=== PATIENT | female | born 1975 | race Caucasian/White ===

== ENCOUNTER 2020-03-15 11:02 | Observation (INO) | payer OTHER ==
--- NOTE | 2020-03-15 15:37 | Gastroenterology Consultation ---
History of Present Illness - Reason for Consult Consult date: 03/15/20 Malfunction PEG tube Requesting physician: CLARISA SPARKS - History of Present Illness The patient is a 44 yo female last seen in August (under name Ly Justyna, not Justyna Ly) for a dislodged PEG. She has a hx of pulling her PEG tube out, and the family brought her to the ER for the same. The last replacement was August (through the existing fistula). She has a hx of CVA with chronic trach and PEG. She is cared for at home by family. Per their report, the PEG was pulled out this AM, and by the time she was in the ER, the fistula was closed (I could also not thread a 16Fr PEG through the fistula). No significant bleeding noted, and there are no fevers or chills. Past History Past Medical History: stroke Past Surgical History: Other (Trach and PEG) Social history: no significant social history, lives with family Family history: no significant family history Medications and Allergies Active Meds: I HAVE REVIEWED AND RECONCILED MEDICATIONS Review of Systems - Review of Systems ROS unobtainable: due to mental status Exam - Constitutional Vital Signs: Temp Pulse Resp BP Pulse Ox 99 F 93 H 17 111/79 100 03/15/20 14:08 03/15/20 14:08 03/15/20 14:08 03/15/20 14:08 03/15/20 14:08 General appearance: no acute distress - EENT Eyes: PERRL, EOM intact ENT: hearing intact, no thrush, other (Trach) - Neck Neck: supple, normal ROM - Respiratory Respiratory effort: normal Respiratory: bilateral: CTA - Breasts Breasts: deferred - Cardiovascular Rhythm: regular Heart Sounds: Present: S1 & S2 - Gastrointestinal General gastrointestinal: Present: soft, non-tender, non-distended, other (Multiple (3) PEG scars in LUQ, with most recent fistula completely closed) - Integumentary Integumentary: Present: clear, warm, dry - Neurologic Neurological: other (Unable to assess; moves RUE and RLE; can grimace) Assessment and Plan - Patient Problems (1) Malfunction of gastrostomy tube Current Visit: Yes Status: Acute Plan to address problem: - Unable to replace at beside due to closure of the fistula, and inadequate supervision in the home (has been replaced at least 3 times previous). - Patient will need to be admitted for Dobhoff feeds, and PEG replaced on Friday (due to staffing issues in GI lab, will be closed until that time). - OK to continue anticoagulation with cardiac ASA (if on) or DVT PPY with heparin/lovenox at present.
[2020-03-15 15:38] LABS: Basophils % (Auto) 0.7 % (0.0-1.8); Eosinophils # (Auto) 0.1 K/mm3 (0.0-0.4); Eosinophils % (Auto) 1.7 % (0.0-4.3); Hematocrit 38.4 % (30.3-42.9); Hemoglobin 13.5 gm/dl (10.1-14.3); Lymphocytes # (Auto) 1.3 K/mm3 (1.2-5.4); Lymphocytes % (Auto) 21.1 % (13.4-35.0); Mean Corpuscular HGB Conc 35 % (30-34); Mean Corpuscular Volume 93 fl (79-97); Monocytes # (Auto) 0.5 K/mm3 (0.0-0.8); Monocytes % (Auto) 8.2 % (0.0-7.3); Platelet Count 214 K/mm3 (140-440); Red Blood Count 4.12 M/mm3 (3.65-5.03); Red Cell Distribution Width 12.8 % (13.2-15.2)
[2020-03-15 15:45] LABS: Alanine Aminotransferase 16 units/L (7-56); Albumin 3.6 g/dL (3.9-5); Blood Urea Nitrogen 11 mg/dL (7-17); Calcium 9.6 mg/dL (8.4-10.2); Hemolysis Index 35
[2020-03-15 15:46] LABS: BUN/Creatinine Ratio 22
--- NOTE | 2020-03-15 16:35 | Emergency Department Report ---
ED Abdominal Pain HPI - General Chief Complaint: Tube Replacement Stated Complaint: G TUBE DISPLACED Time Seen by Provider: 03/15/20 14:40 Source: family, EMS Mode of arrival: Stretcher Limitations: Language Barrier - History of Present Illness Initial Comments: 44-year-old female with a past medical history of CVA, hypertension, chronic trach, and PEG tube placement presents to the hospital for dislodged PEG tube. As per son via telephone states that tube was last and around 1 AM. Patient has a history of pulling out her tube. As per medical record review patient has been seen here previously with documented name PHOEBE, NORBERTO and required a placement PEG tube in August 2019. Patient is completely PEG dependent including feeds and meds Severity scale (0 -10): 0 ED Review of Systems ROS: Stated complaint: G TUBE DISPLACED Other details as noted in HPI Comment: All other systems reviewed and negative ED Past Medical Hx - Past Medical History Previous Medical History?: Yes Hx Hypertension: Yes Hx CVA: Yes Additional medical history: CVA 2018 - Surgical History Past Surgical History?: Yes Additional Surgical History: TRACH 12/2018 - Social History Smoking Status: Never Smoker Substance Use Type: None ED Physical Exam - General Limitations: Language Barrier - Other Other exam information: General: No acute distress Head: Atraumatic Eyes: normal appearance ENT: Moist mucous membranes Neck: Trach with supplemental oxygen Chest: Clear to auscultation bilaterally CV: Regular rate and rhythm Abdomen: Soft, recent PEG tube stoma is closed and I was unable to advance a lubricated Q-tip through this opening. Multiple previous PEG scars noted to the left upper quadrant, abdomen soft and nontender. Extremity: Normal inspection, full range of motion Neuro: Alert, nonverbal ED Course Vital Signs 03/15/20 03/15/20 03/15/20 14:00 14:08 14:15 Temperature 99 F Pulse Rate 76 92 H Respiratory 15 17 18 Rate Blood Pressure 111/79 109/80 O2 Sat by Pulse 100 100 100 Oximetry 03/15/20 03/15/20 03/15/20 14:30 14:45 15:01 Temperature Pulse Rate 85 80 73 Respiratory 20 13 12 Rate Blood Pressure 114/70 104/73 107/74 O2 Sat by Pulse 100 100 100 Oximetry 03/15/20 03/15/20 03/15/20 15:15 15:31 15:45 Temperature Pulse Rate 89 86 80 Respiratory 17 20 16 Rate Blood Pressure 107/74 107/74 107/74 O2 Sat by Pulse 100 100 100 Oximetry 03/15/20 16:00 Temperature Pulse Rate 75 Respiratory 18 Rate Blood Pressure 126/86 O2 Sat by Pulse Oximetry - Consultations Consultation #1: 03/15/[address] Jarrell GI doctor on-call shortly after initial patient evaluation. He also attempted to advance PEG tube (see note) however, confirms the stoma is closed. Unfortunately endoscopy is not available at this time and since patient is PEG tube dependent and recommends Dobbhoff tube for tube feedings until PEG tube can be replaced. ED Medical Decision Making - Lab Data Result diagrams: 03/15/20 15:09 03/15/20 15:09 Lab Results 03/15/20 03/15/20 Range/Units 15:09 15:09 WBC 5.9 (4.5-11.0) K/mm3 RBC 4.12 (3.65-5.03) M/mm3 Hgb 13.5 (10.1-14.3) gm/dl Hct 38.4 (30.3-42.9) % MCV 93 (79-97) fl MCH 33 H (28-32) pg MCHC 35 H (30-34) % RDW 12.8 L (13.2-15.2) % Plt Count 214 (140-440) K/mm3 Lymph % (Auto) 21.1 (13.4-35.0) % [place] % (Auto) 8.2 H (0.0-7.3) % Eos % (Auto) 1.7 (0.0-4.3) % Baso % (Auto) 0.7 (0.0-1.8) % Lymph # (Auto) 1.3 (1.2-5.4) K/mm3 [place] # (Auto) 0.5 (0.0-0.8) K/mm3 Eos # (Auto) 0.1 (0.0-0.4) K/mm3 Baso # (Auto) 0.0 (0.0-0.1) K/mm3 Seg Neutrophils % 68.3 (40.0-70.0) % Seg Neutrophils # 4.1 (1.8-7.7) K/mm3 Sodium 142 (137-145) mmol/L Potassium 4.3 (3.6-5.0) mmol/L Chloride 105.9 (98-107) mmol/L Carbon Dioxide 26 (22-30) mmol/L Anion Gap 14 mmol/L BUN 11 (7-17) mg/dL Creatinine 0.5 L (0.6-1.2) mg/dL Estimated GFR > 60 ml/min BUN/Creatinine Ratio 22 % Glucose 114 H (65-100) mg/dL Calcium 9.6 (8.4-10.2) mg/dL Total Bilirubin 0.20 (0.1-1.2) mg/dL AST 16 (5-40) units/L ALT 16 (7-56) units/L Alkaline Phosphatase 81 (35-129) units/L Total Protein 6.7 (6.3-8.2) g/dL Albumin 3.6 L (3.9-5) g/dL Albumin/Globulin Ratio 1.2 % - Medical Decision Making 44-year-old female PEG dependent presents to the hospital after PEG tube fell out. Patient has a history of pulling out her PEG tube in the past. Patient will require admission to the hospital for PEG tube replacement. Unfortunately, endoscopy is not available until Friday and patient will require Dobbhoff feeds until PEG can be replaced. Critical Care Time: No Critical care attestation.: If time is entered above; I have spent that time in minutes in the direct care of this critically ill patient, excluding procedure time. ED Disposition Clinical Impression: Dislodged gastrostomy tube, On tube feeding diet Disposition: OP ADMIT IP TO THIS HOSP Is pt being admited?: Yes Condition: Stable Time of Disposition: 16:51
--- NOTE | 2020-03-15 17:40 | History and Physical Report ---
History of Present Illness Chief complaint: She pulled the tube out History of present illness: 44 YO Female with Severe Malnutrition, Seizure Disorder, Hypothyroidism, HTN, CVA S/P Trach/Peg placement, Debility presents to ED for evaluation. Patient is at her baseline level of cognition and is unable to provide history. Patient history taken from EMS staff, ED staff, as well as patient family. As per patient family the patient was in her usual state of health with the PEG tube being in position at around 0100 hrs. Patient was found this morning upon awakening from sleep to have dislodged her feeding tube and is unable to receive her medication. EMS was notified and upon arrival the patient was found to have a dislodged feeding tube and was subsequently transported to [facility] for further evaluation and care. The patient was seen and evaluated in the emergency department. All lab and imaging studies reviewed. The patient was found to have severe malnutrition, metabolic encephalopathy, as well as a dislodged PEG tube. Patient admitted to medical floor due to increased risk of worsening symptoms. Gastroenterology team consulted in the emergency department. Patient is pending PEG tube replacement. No reports of fever, chills, chest pain, palpitations, trauma, recent ill contacts, or known exposure to COVID-19. Prior admission from August 2019 reviewed. All medication listed at time of admission has been reconciled. Past History Past Medical History: stroke, other (See HPI) Past Surgical History: Other (Trach and PEG) Social history: no significant social history, lives with family Family history: no significant family history Medications and Allergies Allergies Allergy/AdvReac Type Severity Reaction Status Date / Time Iodine and Iodide Containing Allergy Anaphylaxis Verified 03/15/20 16:46 Produc shellfish derived Allergy Anaphylaxis Verified 03/15/20 16:46 Home Medications Medication Instructions Recorded Confirmed Last Taken Type Aspirin 81 mg FEEDTUBE DAILY 03/15/20 03/15/20 1 Day Ago History ~03/14/20 81 Levothyroxine Sodium 100 mcg PO BID 03/15/20 03/14/20 08:00 History [Levothyroxine] 100 Pantoprazole [Protonix TAB] 10 PO TID 03/15/20 1 Day Ago History ~03/14/20 10 Pantoprazole [Protonix] 40 mg PO TID 03/15/20 03/15/20 1 Day Ago History ~03/14/20 levETIRAcetam [Keppra] 100 mg FEEDTUBE BID 03/15/20 03/15/20 1 Day Ago History ~03/14/20 100 Review of Systems ROS unobtainable: due to mental status Exam - Constitutional Vitals: Temp Pulse Resp BP Pulse Ox 99 F 75 18 126/86 100 03/15/20 14:08 03/15/20 16:00 03/15/20 16:00 03/15/20 16:00 03/15/20 15:45 General appearance: Present: mild distress - EENT Eyes: Present: PERRL ENT: clear oral mucosa, hearing decreased - Neck Neck: Present: supple, normal ROM - Respiratory Respiratory effort: normal Respiratory: bilateral: CTA - Cardiovascular Heart Sounds: Present: S1 & S2. Absent: rub, click - Extremities Extremities: pulses symmetrical, No edema Peripheral Pulses: within normal limits - Abdominal General gastrointestinal: Present: soft, non-tender, non-distended, normal bowel sounds Female genitourinary: Present: normal - Integumentary Integumentary: Present: clear, dry - Musculoskeletal Musculoskeletal: generalized weakness - Psychiatric Psychiatric: no appropriate mood/affect, no intact judgment & insight, no memory intact - Neurologic Neurologic: CNII-XII intact, focal deficits, no moves all extremities, no gait normal Results - Labs CBC & Chem 7: 03/15/20 15:09 03/15/20 15:09 Labs: Abnormal lab results 03/15/20 03/15/20 Range/Units 15:09 15:09 MCH 33 H (28-32) pg MCHC 35 H (30-34) % RDW 12.8 L (13.2-15.2) % [place] % (Auto) 8.2 H (0.0-7.3) % Creatinine 0.5 L (0.6-1.2) mg/dL Glucose 114 H (65-100) mg/dL Albumin 3.6 L (3.9-5) g/dL Assessment and Plan - Patient Problems (1) Metabolic encephalopathy Current Visit: Yes Status: Acute Plan to address problem: Supportive care, neuro check, seizure precautions, aspiration precautions, NPO. (2) Dislodged gastrostomy tube Current Visit: Yes Status: Acute Plan to address problem: GI team consulted in ED, patient pending surgical intervention, Dobbhoff tube placement. (3) Severe malnutrition Current Visit: Yes Status: Acute Plan to address problem: Dietary supplementation, increase protein intake. (4) Seizure disorder Current Visit: Yes Status: Acute Plan to address problem: Seizure precautions, continue Keppra via Dobbhoff tube, neuro check (5) Hypothyroidism Current Visit: Yes Status: Acute Plan to address problem: Continue Synthroid therapy via Dobbhoff tube, supportive care. (6) DVT prophylaxis Current Visit: Yes Status: Acute Plan to address problem: SCD to bilateral lower extremities while in bed, prophylactic anticoagulation
[2020-03-15] MEDS ORDERED: ACETAMINOPHEN 325 MG TAB PO PRN (17:42)
[2020-03-15] MEDS ORDERED: ONDANSETRON 4 MG/2 ML INJ IV PRN (17:42)
--- NOTE | 2020-03-15 18:32 | XRay Report ---
ABDOMEN SUPINE INDICATION / CLINICAL INFORMATION: ng. COMPARISON: None available. FINDINGS: Nasogastric tube is in the stomach, with the tip in the distal stomach. Signer Name: Miquel Esparza MD Signed: 03/15/2020 6:28 PM Workstation Name: [id number]
[2020-03-15] MEDS: D5W/0.45% NACL 1,000 ML IV SCH (21:00)
[2020-03-15] MEDS ORDERED: FAMOTIDINE 10 MG TAB PO SCH (22:00)
[2020-03-15] MEDS ORDERED: PANTOPRAZOLE 40 MG TAB PO SCH (22:00)
[2020-03-15] MEDS ORDERED: NON-FORMULARY EACH (Levothyroxine Sodium [Levothyroxine] 100 MCG Capsule) PO SCH (22:00)
[2020-03-15] MEDS: LEVOTHYROXINE 100 MCG TAB FEEDTUBE SCH (22:00)
[2020-03-15] MEDS ORDERED: levETIRAcetam 500 MG/5 ML ORAL LIQD FEEDTUBE SCH (22:00)
[2020-03-16] MEDS ORDERED: hydrALAZINE 20 MG/1 ML INJ IV PRN (00:41)
[2020-03-16] MEDS: levETIRAcetam 500 MG in DEXTROSE 5% IN WATER 100 ML IV SCH ×3 (01:15→21:34)
[2020-03-16 06:01] LABS: INR 0.96 (0.87-1.13)
[2020-03-16 06:02] LABS: Partial Thromboplastin Time 27.6 Sec. (24.2-36.6)
[2020-03-16 06:15] LABS: Blood Urea Nitrogen 12 mg/dL (7-17); Calcium 9.2 mg/dL (8.4-10.2); Hemolysis Index 36
[2020-03-16 06:21] LABS: BUN/Creatinine Ratio 24
[2020-03-16] MEDS ORDERED: DEXTROSE 5% IV SCH (08:00)
[2020-03-16] MEDS ORDERED: LEVETIRACETAM IV SCH (08:00)
[2020-03-16] MEDS ORDERED: WATER IV SCH (08:00)
[2020-03-16] MEDS: ASPIRIN 81 MG TAB CHEW FEEDTUBE SCH (08:49)
[2020-03-16] MEDS: D5W/0.45% NACL 1,000 ML IV SCH ×2 (09:04→13:10)
[2020-03-16] MEDS: PANTOPRAZOLE 40 MG INJ IV SCH ×2 (09:04→21:29)
[2020-03-16] MEDS: LEVOTHYROXINE 100 MCG TAB FEEDTUBE SCH ×2 (09:07→21:29)
--- NOTE | 2020-03-16 09:32 | Progress Note ---
Assessment and Plan Assessment and plan: 44 YO Female with Severe Malnutrition, Seizure Disorder, Hypothyroidism, HTN, CVA S/P Trach/Peg placement, Debility presents to ED for evaluation. Patient is at her baseline level of cognition and is unable to provide history. Patient history taken from EMS staff, ED staff, as well as patient family. As per patient family the patient was in her usual state of health with the PEG tube being in position at around 0100 hrs. Patient was found this morning upon awakening from sleep to have dislodged her feeding tube and is unable to receive her medication. EMS was notified and upon arrival the patient was found to have a dislodged feeding tube and was subsequently transported to [facility] for further e valuation and care. The patient was seen and evaluated in the emergency department. All lab and imaging studies reviewed. The patient was found to have severe malnutrition, metabolic encephalopathy, as well as a dislodged PEG tube. Patient admitted to medical floor due to increased risk of worsening symptoms. Gastroenterology team consulted in the emergency department. Patient is pending PEG tube replacement. No reports of fever, chills, chest pain, palpitations, trauma, recent ill contacts, or known exposure to COVID-19. Prior admission from August 2019 reviewed. All medication listed at time of admission has been reconciled. 03/16: Multiple attempts to place line rebuffed by the patient. Discussed with family patient takes Ativan at home orally. Will give one-time dose IV. Mon itor respiration. We will also while awaiting GI order for PICC line and possible TPN or PPN until patient is able to get replacement of the dislodged gastrostomy tube. Plan discussed with the nursing staff and patient (1) Metabolic encephalopathy Current Visit: Yes Status: Acute Plan to address problem: Supportive care, neuro check, seizure precautions, aspiration precautions, NPO. (2) Dislodged gastrostomy tube Current Visit: Yes Status: Acute Plan to address problem: GI team consulted in ED, patient pending surgical intervention, Dobbhoff tube placement. (3) Severe malnutrition Current Visit: Yes Status: Acute Plan to address problem: Dietary supplementation, increase protein intake. (4) Seizure disorder Current Visit: Yes Status: Acute Plan to address problem: Seizure precautions, continue Keppra via Dobbhoff tube, neuro check (5) Hypothyroidism Current Visit: Yes Status: Acute Plan to address problem: Continue Synthroid therapy via Dobbhoff tube, supportive care. (6) DVT prophylaxis Current Visit: Yes Status: Acute Plan to address problem: SCD to bilateral lower extremities while in bed, prophylactic anticoagulation History Interval history: Patient seen and examined tolerating oxygenation well along with her trach. She is very fidgety and anxious. She states affirmative to anxious questions. Hospitalist Physical - Physical exam Narrative exam: General appearance: Present: mild distress, anxious - EENT Eyes: Present: PERRL ENT: clear oral mucosa, hearing decreased - Neck Neck: Present: Tracheostomy is midline supple, normal ROM - Respiratory Respiratory effort: normal Respiratory: bilateral: CTA - Cardiovascular Heart Sounds: Present: S1 & S2. Absent: rub, click - Extremities Extremities: pulses symmetrical, No edema Peripheral Pulses: within normal limits - Abdominal General gastrointestinal: Present: soft, non-tender, non-distended, normal bowel sounds Female genitourinary: Present: normal - Integumentary Integumentary: Present: clear, dry - Musculoskeletal Musculoskeletal: generalized weakness - Psychiatric Psychiatric: Anxious. No appropriate mood/affect, no intact judgment & insight, no memory intact - Neurologic Neurologic: CNII-XII intact, focal deficits, no moves all extremities, no gait normal - Constitutional Vitals: Temp Pulse Resp BP Pulse Ox 98.2 F 75 18 129/86 96 03/16/20 07:17 03/16/20 07:17 03/16/20 07:17 03/16/20 07:17 03/16/20 07:17 General appearance: Present: mild distress Results - Labs CBC & Chem 7: 03/15/20 15:09 03/16/20 04:00 Labs: Laboratory Last Values WBC 5.9 K/mm3 (4.5-11.0) 03/15/20 15:09 RBC 4.12 M/mm3 (3.65-5.03) 03/15/20 15:09 Hgb 13.5 gm/dl (10.1-14.3) 03/15/20 15:09 Hct 38.4 % (30.3-42.9) 03/15/20 15:09 MCV 93 fl (79-97) 03/15/20 15:09 MCH 33 pg (28-32) H 03/15/20 15:09 MCHC 35 % (30-34) H 03/15/20 15:09 RDW 12.8 % (13.2-15.2) L 03/15/20 15:09 Plt Count 214 K/mm3 (140-440) 03/15/20 15:09 Lymph % (Auto) 21.1 % (13.4-35.0) 03/15/20 15:09 [place] % (Auto) 8.2 % (0.0-7.3) H 03/15/20 15:09 Eos % (Auto) 1.7 % (0.0-4.3) 03/15/20 15:09 Baso % (Auto) 0.7 % (0.0-1.8) 03/15/20 15:09 Lymph # (Auto) 1.3 K/mm3 (1.2-5.4) 03/15/20 15:09 [place] # (Auto) 0.5 K/mm3 (0.0-0.8) 03/15/20 15:09 Eos # (Auto) 0.1 K/mm3 (0.0-0.4) 03/15/20 15:09 Baso # (Auto) 0.0 K/mm3 (0.0-0.1) 03/15/20 15:09 Seg Neutrophils % 68.3 % (40.0-70.0) 03/15/20 15:09 Seg Neutrophils # 4.1 K/mm3 (1.8-7.7) 03/15/20 15:09 PT 12.6 Sec. (12.2-14.9) 03/16/20 05:26 INR 0.96 (0.87-1.13) 03/16/20 05:26 APTT 27.6 Sec. (24.2-36.6) 03/16/20 05:26 Sodium 142 mmol/L (137-145) 03/16/20 04:00 Potassium 3.6 mmol/L (3.6-5.0) 03/16/20 04:00 Chloride 105.2 mmol/L (98-107) 03/16/20 04:00 Carbon Dioxide 31 mmol/L (22-30) H 03/16/20 04:00 Anion Gap 9 mmol/L 03/16/20 04:00 BUN 12 mg/dL (7-17) 03/16/20 04:00 Creatinine 0.5 mg/dL (0.6-1.2) L 03/16/20 04:00 Estimated GFR > 60 ml/min 03/16/20 04:00 BUN/Creatinine Ratio 24 % 03/16/20 04:00 Glucose 124 mg/dL (65-100) H 03/16/20 04:00 Calcium 9.2 mg/dL (8.4-10.2) 03/16/20 04:00 Total Bilirubin 0.20 mg/dL (0.1-1.2) 03/15/20 15:09 AST 16 units/L (5-40) 03/15/20 15:09 ALT 16 units/L (7-56) 03/15/20 15:09 Alkaline Phosphatase 81 units/L (35-129) 03/15/20 15:09 Total Protein 6.7 g/dL (6.3-8.2) 03/15/20 15:09 Albumin 3.6 g/dL (3.9-5) L 03/15/20 15:09 Albumin/Globulin Ratio 1.2 % 03/15/20 15:09 [place]/IV: Voiding Method Indwelling Catheter IV Catheter Type [left forearm Peripheral IV ] Active Medications - Current Medications Current Medications: Generic Name Dose Route Start Last Admin Trade Name Freq PRN Reason Stop Dose Admin Acetaminophen 650 mg 03/15/20 17:42 Acetaminophen 325 Mg Tab PO Q4H PRN Pain MILD(1-3)/Fever >100.5/LYONS Aspirin 81 mg 03/16/20 08:00 Aspirin 81 Mg Tab Chew FEEDTUBE QDAY GILSON Hydralazine HCl 5 mg 03/16/20 00:41 Hydralazine 20 Mg/1 Ml Inj IV Q6H PRN Hypertension Dextrose/Sodium Chloride 1,000 mls @ 75 mls/hr 03/15/20 18:00 03/16/20 09:04 D5/0.45ns IV 75 mls/hr DIRECT GILSON Administration Levetiracetam 500 mg/ Dextrose 105 mls @ 420 mls/hr 03/16/20 01:15 03/16/20 01:15 IV 420 mls/hr BID@1000,2200 GILSON Administration Levothyroxine Sodium 100 mcg 03/15/20 22:00 03/15/20 22:00 Levothyroxine 100 Mcg Tab FEEDTUBE Not Given BID GILSON Ondansetron HCl 4 mg 03/15/20 17:42 Ondansetron 4 Mg/2 Ml Inj IV Q8H PRN Nausea And Vomiting Pantoprazole Sodium 40 mg 03/16/20 08:00 03/16/20 09:04 Pantoprazole 40 Mg Inj IV 40 mg BID GILSON Administration Sodium Chloride 10 ml 03/15/20 22:00 03/16/20 09:07 Sodium Chloride 0.9% 10 Ml Flush Syringe IV 10 ml BID GILSON Administration Sodium Chloride 10 ml 03/15/20 17:42 Sodium Chloride 0.9% 10 Ml Flush Syringe IV PRN PRN LINE FLUSH
[2020-03-16] MEDS ORDERED: NON-FORMULARY EACH (Aspirin 81 MG) FEEDTUBE SCH (10:00)
--- NOTE | 2020-03-16 10:20 | Gastroenterology Progress Note ---
Assessment and Plan Patient will need non emergent PEG tube placement; will perform on Friday In meantime she requires route of nutrition. Please pass NGT for tube feeds; if cannot perform then will need ppn - Patient Problems (1) Dislodged gastrostomy tube Current Visit: Yes Status: Acute Subjective Date of service: 03/16/20 Principal diagnosis: dysphagia, disloged PEG Interval history: patient without method for enteral feeding currently lying bed NAD Objective - Constitutional Vitals: Temp Pulse Resp BP Pulse Ox 98.2 F 75 18 129/86 95 03/16/20 07:17 03/16/20 07:17 03/16/20 07:17 03/16/20 07:17 03/16/20 10:01 General appearance: no acute distress - Labs CBC & Chem 7: 03/15/20 15:09 03/16/20 04:00 Labs: Laboratory Results - last 24 hr 03/15/20 03/15/20 03/16/20 15:09 15:09 04:00 WBC 5.9 RBC 4.12 Hgb 13.5 Hct 38.4 MCV 93 MCH 33 H MCHC 35 H RDW 12.8 L Plt Count 214 Lymph % (Auto) 21.1 [place] % (Auto) 8.2 H Eos % (Auto) 1.7 Baso % (Auto) 0.7 Lymph # (Auto) 1.3 [place] # (Auto) 0.5 Eos # (Auto) 0.1 Baso # (Auto) 0.0 Seg Neutrophils % 68.3 Seg Neutrophils # 4.1 PT INR APTT Sodium 142 142 Potassium 4.3 3.6 Chloride 105.9 105.2 Carbon Dioxide 26 31 H Anion Gap 14 9 BUN 11 12 Creatinine 0.5 L 0.5 L Estimated GFR > 60 > 60 BUN/Creatinine Ratio 22 24 Glucose 114 H 124 H Calcium 9.6 9.2 Total Bilirubin 0.20 AST 16 ALT 16 Alkaline Phosphatase 81 Total Protein 6.7 Albumin 3.6 L Albumin/Globulin Ratio 1.2 03/16/20 05:26 WBC RBC Hgb Hct MCV MCH MCHC RDW Plt Count Lymph % (Auto) [place] % (Auto) Eos % (Auto) Baso % (Auto) Lymph # (Auto) [place] # (Auto) Eos # (Auto) Baso # (Auto) Seg Neutrophils % Seg Neutrophils # PT 12.6 INR 0.96 APTT 27.6 Sodium Potassium Chloride Carbon Dioxide Anion Gap BUN Creatinine Estimated GFR BUN/Creatinine Ratio Glucose Calcium Total Bilirubin AST ALT Alkaline Phosphatase Total Protein Albumin Albumin/Globulin Ratio
[2020-03-16] MEDS ORDERED: LORazepam 2 MG/ML VIAL IV ONE (11:31)
--- NOTE | 2020-03-16 12:50 | XRay Report ---
ABDOMEN 1 VIEW 12:33 PM INDICATION / CLINICAL INFORMATION: Feeding tube placement. COMPARISON: Yesterday FINDINGS: TUBES / LINES: The nasogastric tube has been removed. There is a new weighted enteric feeding tube wi th the tip overlying the distal stomach or duodenal bulb. BOWEL GAS PATTERN: No significant abnormality. FREE AIR / EXTRALUMINAL GAS: None seen. ADDITIONAL FINDINGS: There is an IVC filter at the L2-3 level on the right. IMPRESSION: Feeding tube tip overlies the distal stomach or duodenal bulb. Signer Name: Derian Ricks MD Signed: 03/16/2020 12:46 PM Workstation Name: [id number]
[2020-03-17] MEDS: ASPIRIN 81 MG TAB CHEW FEEDTUBE SCH (10:27)
[2020-03-17] MEDS: PANTOPRAZOLE 40 MG INJ IV SCH ×2 (10:27→22:54)
[2020-03-17] MEDS: LEVOTHYROXINE 100 MCG TAB FEEDTUBE SCH ×2 (10:27→22:54)
[2020-03-17] MEDS: D5W/0.45% NACL 1,000 ML IV SCH (10:33)
[2020-03-17] MEDS: levETIRAcetam 500 MG in DEXTROSE 5% IN WATER 100 ML IV SCH ×2 (10:50→22:55)
--- NOTE | 2020-03-17 11:32 | Gastroenterology Progress Note ---
Assessment and Plan Patient will need non emergent PEG tube placement; will perform on Friday In meantime she now has NGT so may start tube feeds; I spoke with the nurse - Patient Problems (1) Dislodged gastrostomy tube Current Visit: Yes Status: Acute Subjective Date of service: 03/17/20 Principal diagnosis: dysphagia, disloged PEG Interval history: lying bed NAD, ngt in place Objective - Constitutional Vitals: Temp Pulse Resp BP Pulse Ox 97.7 F 97 H 16 154/101 98 03/17/20 07:08 03/17/20 07:08 03/17/20 07:08 03/17/20 07:08 03/17/20 07:08 General appearance: no acute distress - Respiratory Respiratory effort: normal - Labs CBC & Chem 7: 03/15/20 15:09 03/16/20 04:00 Labs: Laboratory Results - last 24 hr 03/16/20 03/16/20 03/17/20 13:14 13:51 02:31 POC Glucose 88 101 Phosphorus 2.90 Magnesium 1.90 03/17/20 03/17/20 06:36 11:27 POC Glucose 100 111 H Phosphorus Magnesium
[2020-03-17] MEDS ORDERED: LORazepam 1 MG TAB PO PRN (13:52)
--- NOTE | 2020-03-17 13:52 | Progress Note ---
Assessment and Plan Assessment and plan: 44 YO Female with Severe Malnutrition, Seizure Disorder, Hypothyroidism, HTN, CVA S/P Trach/Peg placement, Debility presents to ED for evaluation. Patient is at her baseline level of cognition and is unable to provide history. Patient history taken from EMS staff, ED staff, as well as patient family. As per patient family the patient was in her usual state of health with the PEG tube being in position at around 0100 hrs. Patient was found this morning upon awakening from sleep to have dislodged her feeding tube and is unable to receive her medication. EMS was notified and upon arrival the patient was found to have a dislodged feeding tube and was subsequently transported to [facility] for further e valuation and care. The patient was seen and evaluated in the emergency department. All lab and imaging studies reviewed. The patient was found to have severe malnutrition, metabolic encephalopathy, as well as a dislodged PEG tube. Patient admitted to medical floor due to increased risk of worsening symptoms. Gastroenterology team consulted in the emergency department. Patient is pending PEG tube replacement. No reports of fever, chills, chest pain, palpitations, trauma, recent ill contacts, or known exposure to COVID-19. Prior admission from August 2019 reviewed. All medication listed at time of admission has been reconciled. 03/16: Multiple attempts to place line rebuffed by the patient. Discussed with family patient takes Ativan at home orally. Will give one-time dose IV. Mon itor respiration. We will also while awaiting GI order for PICC line and possible TPN or PPN until patient is able to get replacement of the dislodged gastrostomy tube. Plan discussed with the nursing staff and patient 03/17: Continue current diet through the NG tube. Continue seizure precautions and continue seizure medication. (1) Metabolic encephalopathy Current Visit: Yes Status: Acute Plan to address problem: Supportive care, neuro check, seizure precautions, aspiration precautions, NPO. (2) Dislodged gastrostomy tube Current Visit: Yes Status: Acute Plan to address problem: GI team consulted in ED, patient pending surgical intervention, Dobbhoff tube placement. (3) Severe malnutrition Current Visit: Yes Status: Acute Plan to address problem: Dietary supplementation, increase protein intake. (4) Seizure disorder Current Visit: Yes Status: Acute Plan to address problem: Seizure precautions, continue Keppra via Dobbhoff tube, neuro check (5) Hypothyroidism Current Visit: Yes Status: Acute Plan to address problem: Continue Synthroid therapy via Dobbhoff tube, supportive care. (6) DVT prophylaxis Current Visit: Yes Status: Acute Plan to address problem: SCD to bilateral lower extremities while in bed, prophylactic anticoagulation History Interval history: Patient seen and examined still fidgety no new complaints at this time NG tube is in place patient is on restraints to prevent her from pulling off the tube. Hospitalist Physical - Physical exam Narrative exam: General appearance: Present: mild distress, anxious - EENT Eyes: Present: PERRL ENT: clear oral mucosa, hearing decreased. NG tube in place - Neck Neck: Present: Tracheostomy is midline supple, normal ROM - Respiratory Respiratory effort: normal Respiratory: bilateral: CTA - Cardiovascular Heart Sounds: Present: S1 & S2. Absent: rub, click - Extremities Extremities: pulses symmetrical, No edema Peripheral Pulses: within normal limits - Abdominal General gastrointestinal: Present: soft, non-tender, non-distended, normal bowel sounds Female genitourinary: Present: normal - Integumentary Integumentary: Present: clear, dry - Musculoskeletal Musculoskeletal: generalized weakness - Psychiatric Psychiatric: Anxious. No appropriate mood/affect, no intact judgment & insight, no memory intact - Neurologic Neurologic: CNII-XII intact, focal deficits, no moves all extremities, no gait normal - Constitutional Vitals: Temp Pulse Resp BP Pulse Ox 97.3 F L 75 20 135/93 98 03/17/20 11:20 03/17/20 11:20 03/17/20 11:20 03/17/20 11:20 03/17/20 13:32 General appearance: Present: mild distress Results - Labs CBC & Chem 7: 03/15/20 15:09 03/16/20 04:00 Labs: Laboratory Last Values WBC 5.9 K/mm3 (4.5-11.0) 03/15/20 15:09 RBC 4.12 M/mm3 (3.65-5.03) 03/15/20 15:09 Hgb 13.5 gm/dl (10.1-14.3) 03/15/20 15:09 Hct 38.4 % (30.3-42.9) 03/15/20 15:09 MCV 93 fl (79-97) 03/15/20 15:09 MCH 33 pg (28-32) H 03/15/20 15:09 MCHC 35 % (30-34) H 03/15/20 15:09 RDW 12.8 % (13.2-15.2) L 03/15/20 15:09 Plt Count 214 K/mm3 (140-440) 03/15/20 15:09 Lymph % (Auto) 21.1 % (13.4-35.0) 03/15/20 15:09 [place] % (Auto) 8.2 % (0.0-7.3) H 03/15/20 15:09 Eos % (Auto) 1.7 % (0.0-4.3) 03/15/20 15:09 Baso % (Auto) 0.7 % (0.0-1.8) 03/15/20 15:09 Lymph # (Auto) 1.3 K/mm3 (1.2-5.4) 03/15/20 15:09 [place] # (Auto) 0.5 K/mm3 (0.0-0.8) 03/15/20 15:09 Eos # (Auto) 0.1 K/mm3 (0.0-0.4) 03/15/20 15:09 Baso # (Auto) 0.0 K/mm3 (0.0-0.1) 03/15/20 15:09 Seg Neutrophils % 68.3 % (40.0-70.0) 03/15/20 15:09 Seg Neutrophils # 4.1 K/mm3 (1.8-7.7) 03/15/20 15:09 PT 12.6 Sec. (12.2-14.9) 03/16/20 05:26 INR 0.96 (0.87-1.13) 03/16/20 05:26 APTT 27.6 Sec. (24.2-36.6) 03/16/20 05:26 Sodium 142 mmol/L (137-145) 03/16/20 04:00 Potassium 3.6 mmol/L (3.6-5.0) 03/16/20 04:00 Chloride 105.2 mmol/L (98-107) 03/16/20 04:00 Carbon Dioxide 31 mmol/L (22-30) H 03/16/20 04:00 Anion Gap 9 mmol/L 03/16/20 04:00 BUN 12 mg/dL (7-17) 03/16/20 04:00 Creatinine 0.5 mg/dL (0.6-1.2) L 03/16/20 04:00 Estimated GFR > 60 ml/min 03/16/20 04:00 BUN/Creatinine Ratio 24 % 03/16/20 04:00 Glucose 124 mg/dL (65-100) H 03/16/20 04:00 POC Glucose 111 mg/dL (70-105) H 03/17/20 11:27 Calcium 9.2 mg/dL (8.4-10.2) 03/16/20 04:00 Phosphorus 2.90 mg/dL (2.5-4.5) 03/16/20 13:14 Magnesium 1.90 mg/dL (1.7-2.3) 03/16/20 13:14 Total Bilirubin 0.20 mg/dL (0.1-1.2) 03/15/20 15:09 AST 16 units/L (5-40) 03/15/20 15:09 ALT 16 units/L (7-56) 03/15/20 15:09 Alkaline Phosphatase 81 units/L (35-129) 03/15/20 15:09 Total Protein 6.7 g/dL (6.3-8.2) 03/15/20 15:09 Albumin 3.6 g/dL (3.9-5) L 03/15/20 15:09 Albumin/Globulin Ratio 1.2 % 03/15/20 15:09 Frederick/IV: Voiding Method Diaper IV Catheter Type [left forearm Peripheral IV ] Active Medications - Current Medications Current Medications: Generic Name Dose Route Start Last Admin Trade Name Freq PRN Reason Stop Dose Admin Acetaminophen 650 mg 03/15/20 17:42 Acetaminophen 325 Mg Tab PO Q4H PRN Pain MILD(1-3)/Fever >100.5/LYONS Aspirin 81 mg 03/16/20 08:00 03/17/20 10:27 Aspirin 81 Mg Tab Chew FEEDTUBE 81 mg QDAY GILSON Administration Hydralazine HCl 5 mg 03/16/20 00:41 Hydralazine 20 Mg/1 Ml Inj IV Q6H PRN Hypertension Dextrose/Sodium Chloride 1,000 mls @ 75 mls/hr 03/15/20 18:00 03/17/20 10:33 D5/0.45ns IV 75 mls/hr DIRECT GILSON Administration Levetiracetam 500 mg/ Dextrose 105 mls @ 420 mls/hr 03/16/20 01:15 03/17/20 10:50 IV 420 mls/hr BID@1000,2200 GILSON Administration Levothyroxine Sodium 100 mcg 03/15/20 22:00 03/17/20 10:27 Levothyroxine 100 Mcg Tab FEEDTUBE 100 mcg BID GILSON Administration Ondansetron HCl 4 mg 03/15/20 17:42 Ondansetron 4 Mg/2 Ml Inj IV Q8H PRN Nausea And Vomiting Pantoprazole Sodium 40 mg 03/16/20 08:00 03/17/20 10:27 Pantoprazole 40 Mg Inj IV 40 mg BID GILSON Administration Sodium Chloride 10 ml 03/15/20 22:00 03/17/20 10:51 Sodium Chloride 0.9% 10 Ml Flush Syringe IV Not Given BID GILSNO Sodium Chloride 10 ml 03/15/20 17:42 Sodium Chloride 0.9% 10 Ml Flush Syringe IV PRN PRN LINE FLUSH Nutrition/Malnutrition Assess - Dietary Evaluation Nutrition/Malnutrition Findings: Nutrition Notes Start: 03/16/20 13:01 Freq: Status: Active Protocol: Document 03/17/20 10:43 LM (Rec: 03/17/20 11:01 LM [id number]) Nutrition Notes Need for Assessment generated from: MD Order Initial or Follow up Assessment Current Diagnosis Hypertension Other Pertinent Diagnosis dislodged PEG, seizures, hypothyroid, debility Current Diet TPN Labs/Tests Reviewed Pertinent Medications D5NS at 75ml/hr Height 4 ft 10 in Weight 40.823 kg [place] Body Weight (kg) 40.90 BMI 18.8 Weight Status Underweight Subjective/Other Information MD consult for TPN/PPN. Pt is nonverbal and trach and PEG dependent. Pt has dislodged PEG and previously refused dobhoff placememt. Pt now has dobhoff placed and restrained. PICC placement on hold per RN . Pt is not indicated for PPN with dobhoff placed. Spoke with RN about plan to feed pt. RN stated she needs to find out from MD. Burn Absent Trauma Absent Current % PO Negligible #1 Nutrition Diagnosis Inadequate oral intake Etiology dislodged PEG As Evidenced by Signs and Symptoms Pt unable to consume PO, BMI 18.8 Is patient on ventilator? No Is Patient Ambulatory and/or Out of Bed No REE-([facility]-confined to bed) 1129.500 Kcal/Kg value to use for calculation 32 Approximate Energy Requirements Using 1306 kcal/Kg Calculation Used for Recommendations Kcal/kg Additional Notes Protein: 41-49g (1-1.2g/kg) Fluid: 1ml/kcal Nutrition Intervention Change Diet Order: Recommend enteral nutrition via dobhoff until PEG is replaced Nutrition Support: Jevity 1.2 at 45ml/hr Flush 70ml q4h Kcal 1,296 Protein (gm) 60 Fluid (mL) 872 Goal #1 Start eneteral nutrition via Dobhoff Goal #2 Wt gain/maintenance Anticipated Discharge Needs: TF Follow-Up By: 03/20/20 Additional Comments F/U for POC
[2020-03-17 14:41] LABS: Blood Urea Nitrogen 6 mg/dL (7-17); Calcium 9.4 mg/dL (8.4-10.2); Hemolysis Index 42; Prealbumin 0.186 g/L (0.200-0.400)
[2020-03-17 15:07] LABS: BUN/Creatinine Ratio 12
[2020-03-18] MEDS ORDERED: LIPASE 10,500/PROTEASE 25,000/AMYLASE 43,750 (UNITS) DR CAP FEEDTUBE PRN (08:09)
[2020-03-18] MEDS ORDERED: SIMPLE SYRUP 15 ML FEEDTUBE PRN ×2 (08:09)
[2020-03-18] MEDS ORDERED: SODIUM BICARBONATE 325 MG TAB FEEDTUBE PRN (08:09)
--- NOTE | 2020-03-18 09:21 | Progress Note ---
Assessment and Plan Assessment and plan: 44 YO Female with Severe Malnutrition, Seizure Disorder, Hypothyroidism, HTN, CVA S/P Trach/Peg placement, Debility presents to ED for evaluation. Patient is at her baseline level of cognition and is unable to provide history. Patient history taken from EMS staff, ED staff, as well as patient family. As per patient family the patient was in her usual state of health with the PEG tube being in position at around 0100 hrs. Patient was found this morning upon awakening from sleep to have dislodged her feeding tube and is unable to receive her medication. EMS was notified and upon arrival the patient was found to have a dislodged feeding tube and was subsequently transported to [facility] for further e valuation and care. The patient was seen and evaluated in the emergency department. All lab and imaging studies reviewed. The patient was found to have severe malnutrition, metabolic encephalopathy, as well as a dislodged PEG tube. Patient admitted to medical floor due to increased risk of worsening symptoms. Gastroenterology team consulted in the emergency department. Patient is pending PEG tube replacement. No reports of fever, chills, chest pain, palpitations, trauma, recent ill contacts, or known exposure to COVID-19. Prior admission from August 2019 reviewed. All medication listed at time of admission has been reconciled. 03/16: Multiple attempts to place line rebuffed by the patient. Discussed with family patient takes Ativan at home orally. Will give one-time dose IV. Mon itor respiration. We will also while awaiting GI order for PICC line and possible TPN or PPN until patient is able to get replacement of the dislodged gastrostomy tube. Plan discussed with the nursing staff and patient 03/17: Continue current diet through the NG tube. Continue seizure precautions and continue seizure medication. 03/18: Continue aggressive pulmonary toliet. Peg replacement planned for friday (1) Metabolic encephalopathy Current Visit: Yes Status: Acute Plan to address problem: Supportive care, neuro check, seizure precautions, aspiration precautions, NPO. (2) Dislodged gastrostomy tube Current Visit: Yes Status: Acute Plan to address problem: GI team consulted in ED, patient pending surgical intervention, Dobbhoff tube placement. (3) Severe malnutrition Current Visit: Yes Status: Acute Plan to address problem: Dietary supplementation, increase protein intake. (4) Seizure disorder Current Visit: Yes Status: Acute Plan to address problem: Seizure precautions, continue Keppra via Dobbhoff tube, neuro check (5) Hypothyroidism Current Visit: Yes Status: Acute Plan to address problem: Continue Synthroid therapy via Dobbhoff tube, supportive care. (6) DVT prophylaxis Current Visit: Yes Status: Acute Plan to address problem: SCD to bilateral lower extremities while in bed, prophylactic anticoagulation History Interval history: Patient seen and examined more calm today Hospitalist Physical - Physical exam Narrative exam: General appearance: Present: mild distress, - EENT Eyes: Present: PERRL ENT: clear oral mucosa, hearing decreased. NG tube in place - Neck Neck: Present: Tracheostomy is midline supple, normal ROM - Respiratory Respiratory effort: normal Respiratory: bilateral: CTA - Cardiovascular Heart Sounds: Present: S1 & S2. Absent: rub, click - Extremities Extremities: pulses symmetrical, No edema Peripheral Pulses: within normal limits - Abdominal General gastrointestinal: Present: soft, non-tender, non-distended, normal bowel sounds Female genitourinary: Present: normal - Integumentary Integumentary: Present: clear, dry - Musculoskeletal Musculoskeletal: generalized weakness - Psychiatric Psychiatric: Anxious. No appropriate mood/affect, no intact judgment & insight, no memory intact - Neurologic Neurologic: CNII-XII intact, focal deficits, no moves all extremities, no gait normal - Constitutional Vitals: Temp Pulse Resp BP Pulse Ox 97.4 F L 75 18 118/80 100 03/18/20 08:06 03/18/20 08:06 03/18/20 08:06 03/18/20 08:06 03/18/20 09:09 General appearance: Present: mild distress Results - Labs CBC & Chem 7: 03/15/20 15:09 03/17/20 13:43 Labs: Laboratory Last Values WBC 5.9 K/mm3 (4.5-11.0) 03/15/20 15:09 RBC 4.12 M/mm3 (3.65-5.03) 03/15/20 15:09 Hgb 13.5 gm/dl (10.1-14.3) 03/15/20 15:09 Hct 38.4 % (30.3-42.9) 03/15/20 15:09 MCV 93 fl (79-97) 03/15/20 15:09 MCH 33 pg (28-32) H 03/15/20 15:09 MCHC 35 % (30-34) H 03/15/20 15:09 RDW 12.8 % (13.2-15.2) L 03/15/20 15:09 Plt Count 214 K/mm3 (140-440) 03/15/20 15:09 Lymph % (Auto) 21.1 % (13.4-35.0) 03/15/20 15:09 [place] % (Auto) 8.2 % (0.0-7.3) H 03/15/20 15:09 Eos % (Auto) 1.7 % (0.0-4.3) 03/15/20 15:09 Baso % (Auto) 0.7 % (0.0-1.8) 03/15/20 15:09 Lymph # (Auto) 1.3 K/mm3 (1.2-5.4) 03/15/20 15:09 [place] # (Auto) 0.5 K/mm3 (0.0-0.8) 03/15/20 15:09 Eos # (Auto) 0.1 K/mm3 (0.0-0.4) 03/15/20 15:09 Baso # (Auto) 0.0 K/mm3 (0.0-0.1) 03/15/20 15:09 Seg Neutrophils % 68.3 % (40.0-70.0) 03/15/20 15:09 Seg Neutrophils # 4.1 K/mm3 (1.8-7.7) 03/15/20 15:09 PT 12.6 Sec. (12.2-14.9) 03/16/20 05:26 INR 0.96 (0.87-1.13) 03/16/20 05:26 APTT 27.6 Sec. (24.2-36.6) 03/16/20 05:26 Sodium 144 mmol/L (137-145) 03/17/20 13:43 Potassium 4.5 mmol/L (3.6-5.0) D 03/17/20 13:43 Chloride 107.7 mmol/L (98-107) H 03/17/20 13:43 Carbon Dioxide 28 mmol/L (22-30) 03/17/20 13:43 Anion Gap 13 mmol/L 03/17/20 13:43 BUN 6 mg/dL (7-17) L 03/17/20 13:43 Creatinine 0.5 mg/dL (0.6-1.2) L 03/17/20 13:43 Estimated GFR > 60 ml/min 03/17/20 13:43 BUN/Creatinine Ratio 12 % 03/17/20 13:43 Glucose 120 mg/dL (65-100) H 03/17/20 13:43 POC Glucose 92 mg/dL (70-105) 03/18/20 03:16 Calcium 9.4 mg/dL (8.4-10.2) 03/17/20 13:43 Phosphorus 3.50 mg/dL (2.5-4.5) D 03/17/20 13:43 Magnesium 1.90 mg/dL (1.7-2.3) 03/17/20 13:43 Total Bilirubin 0.20 mg/dL (0.1-1.2) 03/15/20 15:09 AST 16 units/L (5-40) 03/15/20 15:09 ALT 16 units/L (7-56) 03/15/20 15:09 Alkaline Phosphatase 81 units/L (35-129) 03/15/20 15:09 C-Reactive Protein 0.70 mg/dL (0.00-1.30) 03/17/20 13:43 Total Protein 6.7 g/dL (6.3-8.2) 03/15/20 15:09 Albumin 3.6 g/dL (3.9-5) L 03/15/20 15:09 Albumin/Globulin Ratio 1.2 % 03/15/20 15:09 Prealbumin 0.186 g/L (0.200-0.400) L 03/17/20 13:43 Triglycerides 110 mg/dL (2-149) 03/17/20 13:43 Frederick/IV: Voiding Method Diaper IV Catheter Type [left forearm Peripheral IV ] Active Medications - Current Medications Current Medications: Generic Name Dose Route Start Last Admin Trade Name Freq PRN Reason Stop Dose Admin Acetaminophen 650 mg 03/15/20 17:42 Acetaminophen 325 Mg Tab PO Q4H PRN Pain MILD(1-3)/Fever >100.5/LYONS Lipase/Protease/Amylase 1 each 03/18/20 08:09 Lipase 10,500/Protease 25,000/Amylase 43,750 (Units) Dr Butts FEEDTUBE PRN PRN For Clogged Feeding Tube Aspirin 81 mg 03/16/20 08:00 03/17/20 10:27 Aspirin 81 Mg Tab Chew FEEDTUBE 81 mg QDAY GILSON Administration Hydralazine HCl 5 mg 03/16/20 00:41 Hydralazine 20 Mg/1 Ml Inj IV Q6H PRN Hypertension Dextrose/Sodium Chloride 1,000 mls @ 75 mls/hr 03/15/20 18:00 03/17/20 10:33 D5/0.45ns IV 75 mls/hr DIRECT GILSON Administration Levetiracetam 500 mg/ Dextrose 105 mls @ 420 mls/hr 03/16/20 01:15 03/17/20 22:55 IV 420 mls/hr BID@1000,2200 GILSON Administration Levothyroxine Sodium 100 mcg 03/15/20 22:00 03/17/20 22:54 Levothyroxine 100 Mcg Tab FEEDTUBE 100 mcg BID GILSON Administration Lorazepam 1 mg 03/17/20 13:52 03/17/20 22:54 Lorazepam 1 Mg Tab PO 1 mg Q6HR PRN Administration Anxiety Ondansetron HCl 4 mg 03/15/20 17:42 Ondansetron 4 Mg/2 Ml Inj IV Q8H PRN Nausea And Vomiting Pantoprazole Sodium 40 mg 03/16/20 08:00 03/17/20 22:54 Pantoprazole 40 Mg Inj IV 40 mg BID GILSON Administration Simple Syrup 15 ml 03/18/20 08:09 Simple Syrup 15 Ml FEEDTUBE PRN PRN Hypoglycemia Simple Syrup 30 ml 03/18/20 08:09 Simple Syrup 15 Ml FEEDTUBE PRN PRN Hypoglycemia Sodium Bicarbonate 325 mg 03/18/20 08:09 Sodium Bicarbonate 325 Mg Tab FEEDTUBE PRN PRN For Clogged Feeding Tube Sodium Chloride 10 ml 03/15/20 22:00 03/17/20 22:55 Sodium Chloride 0.9% 10 Ml Flush Syringe IV 10 ml BID GILSON Administration Sodium Chloride 10 ml 03/15/20 17:42 Sodium Chloride 0.9% 10 Ml Flush Syringe IV PRN PRN LINE FLUSH Nutrition/Malnutrition Assess - Dietary Evaluation Nutrition/Malnutrition Findings: Nutrition Notes Start: 03/16/20 13:01 Freq: Status: Active Protocol: Document 03/18/20 08:11 GILBERT (Rec: 03/18/20 08:14 [id number]) Nutrition Notes Initial or Follow up Reassessment Current Diagnosis Hypertension Other Pertinent Diagnosis dislodged PEG, seizures, hypothyroid, debility Current Diet TPN Labs/Tests Reviewed Pertinent Medications Reviewed Height 4 ft 10 in Weight 40.823 kg [place] Body Weight (kg) 40.90 BMI 18.8 Weight Status Underweight Subjective/Other Information Spoke with RN this AM and wants TF started. Will order. Pt with dobhoff. Percent of energy/protein needs met: 0%/0% Burn Absent Trauma Absent GI Symptoms None Current % PO Negligible #1 Nutrition Diagnosis Inadequate oral intake Diagnosis Progress(for reassessment Continues documentation) Is patient on ventilator? No Is Patient Ambulatory and/or Out of Bed No REE-([facility]-confined to bed) 1129.500 Kcal/Kg value to use for calculation 32 Approximate Energy Requirements Using 1306 kcal/Kg Calculation Used for Recommendations Kcal/kg Additional Notes Protein: 41-49g (1-1.2g/kg) Fluid: 1ml/kcal Nutrition Intervention Change Diet Order: TF Nutrition Support: Jevity 1.2 at 45ml/hr Flush 70ml q4h Kcal 1,296 Protein (gm) 60 Fluid (mL) 872 Goal #1 TF start/tolerance Goal #2 Meet at least 75% of protein and energy needs via TF Goal #3 Wt gain/maintenance Anticipated Discharge Needs: TF Follow-Up By: 03/20/20 Additional Comments F/U for TF start/tolerance
[2020-03-18] MEDS: PANTOPRAZOLE 40 MG INJ IV SCH ×2 (13:44→22:00)
[2020-03-18] MEDS: LEVOTHYROXINE 100 MCG TAB FEEDTUBE SCH ×2 (13:44→22:00)
[2020-03-18] MEDS: ASPIRIN 81 MG TAB CHEW FEEDTUBE SCH (13:44)
[2020-03-18] MEDS: levETIRAcetam 500 MG in DEXTROSE 5% IN WATER 100 ML IV SCH ×2 (13:50→22:00)
[2020-03-18] MEDS: D5W/0.45% NACL 1,000 ML IV SCH (13:50)
--- NOTE | 2020-03-18 15:08 | Gastroenterology Progress Note ---
Assessment and Plan She has a hx of CVA with chronic trach and PEG. # Dislodged PEG tube - unable to replace PEG by bedside. - will plan for PEG with EGD on Friday Subjective Date of service: 03/18/20 Principal diagnosis: dysphagia, disloged PEG Interval history: Patient has dobhoff tube. No acute events. Objective - Constitutional Vitals: Temp Pulse Resp BP Pulse Ox 97.8 F 88 18 130/71 98 03/18/20 12:12 03/18/20 12:12 03/18/20 12:12 03/18/20 12:12 03/18/20 14:43 General appearance: no acute distress - Neck Neck: other (trach in place) - Respiratory Respiratory effort: normal - Cardiovascular Rhythm: regular Heart Sounds: Present: S1 & S2 - Gastrointestinal General gastrointestinal: Present: soft, non-tender, non-distended - Labs CBC & Chem 7: 03/15/20 15:09 03/17/20 13:43 Labs: Laboratory Results - last 24 hr 03/17/20 03/17/20 03/17/20 13:43 17:43 21:54 Potassium 4.5 D Creatinine 0.5 L Estimated GFR > 60 BUN/Creatinine Ratio 12 POC Glucose 110 H 96 Phosphorus 3.50 D 03/18/20 03/18/20 03:16 12:10 Potassium Creatinine Estimated GFR BUN/Creatinine Ratio POC Glucose 92 109 H Phosphorus
[2020-03-19] MEDS: D5W/0.45% NACL 1,000 ML IV SCH ×2 (04:10→08:29)
[2020-03-19] MEDS: PANTOPRAZOLE 40 MG INJ IV SCH ×2 (08:29→23:34)
[2020-03-19] MEDS: LEVOTHYROXINE 100 MCG TAB FEEDTUBE SCH ×2 (08:29→23:34)
[2020-03-19] MEDS: ASPIRIN 81 MG TAB CHEW FEEDTUBE SCH (08:29)
[2020-03-19] MEDS: levETIRAcetam 500 MG in DEXTROSE 5% IN WATER 100 ML IV SCH ×2 (11:00→23:35)
--- NOTE | 2020-03-19 11:48 | Gastroenterology Progress Note ---
Assessment and Plan Patient will need non emergent PEG tube placement; will perform on Friday In meantime she now has NGT so may continue tube feeds; I placed order to hold tube feeds starting at midnight in anticipation of the PEG tomorrow - Patient Problems (1) Dislodged gastrostomy tube Current Visit: Yes Status: Acute Subjective Date of service: 03/19/20 Principal diagnosis: dysphagia, disloged PEG Interval history: lying bed NAD, ngt in place Objective - Constitutional Vitals: Temp Pulse Resp BP Pulse Ox 97.4 F L 83 16 104/72 98 03/19/20 08:06 03/19/20 08:06 03/19/20 08:06 03/19/20 08:06 03/19/20 10:00 General appearance: no acute distress - Gastrointestinal General gastrointestinal: Present: soft, non-tender - Labs CBC & Chem 7: 03/15/20 15:09 03/17/20 13:43 Labs: Laboratory Results - last 24 hr 03/18/20 03/18/20 03/19/20 12:10 22:14 06:50 POC Glucose 109 H 99 83
--- NOTE | 2020-03-19 11:51 | Progress Note ---
Assessment and Plan Assessment and plan: Assessment and plan: 44 YO Female with Severe Malnutrition, Seizure Disorder, Hypothyroidism, HTN, CVA S/P Trach/Peg placement, Debility presents to ED for evaluation. Patient is at her baseline level of cognition and is unable to provide history. Patient history taken from EMS staff, ED staff, as well as patient family. As per patient family the patient was in her usual state of health with the PEG tube being in position at around 0100 hrs. Patient was found this morning upon awakening from sleep to have dislodged her feeding tube and is unable to receive her medication. EMS was notified and upon arrival the patient was found to have a dislodged feeding tube and was subsequently transported to [facility] for further evaluation and care. The patient was seen and evaluated in the emergency department. All lab and imaging studies reviewed. The patient was found to lyons ve severe malnutrition, metabolic encephalopathy, as well as a dislodged PEG tube. Patient admitted to medical floor due to increased risk of worsening symptoms. Gastroenterology team consulted in the emergency department. Patient is pending PEG tube replacement. No reports of fever, chills, chest pain, palpitations, trauma, recent ill contacts, or known exposure to COVID-19. Prior admission from August 2019 reviewed. All medication listed at time of admission has been reconciled. 03/16: Multiple attempts to place line rebuffed by the patient. Discussed with family patient takes Ativan at home orally. Will give one-time dose IV. Monitor respiration. We will also while awaiting GI order for PICC line and possible TPN or PPN until patient is able to get replacement of the dislodged gastrostomy tube. Plan discussed with the nursing staff and patient 03/17: Continue current diet through the NG tube. Continue seizure precautions and continue seizure medication. 03/18: Continue aggressive pulmonary toliet. Peg replacement planned for friday. 03/19. Plan for PEG placement tomorrow. N.p.o. after midnight Plan --Dislodged gastrostomy tube Current Visit: Yes Status: Acute Plan to address problem: GI team consulted in ED, patient pending surgical intervention, Dobbhoff tube placement. --Severe malnutrition Current Visit: Yes Status: Acute Plan to address problem: Dietary supplementation, increase protein intake. --Vascular dementia Current Visit: Yes Status: Chronic Plan to address problem: Has residual memory impairment. --Seizure disorder Current Visit: Yes Status: Acute Plan to address problem: Seizure precautions, continue Keppra via Dobbhoff tube, neuro check -- Hypothyroidism Current Visit: Yes Status: Acute Plan to address problem: Continue Synthroid therapy via Dobbhoff tube, supportive care. ---DVT prophylaxis Current Visit: Yes Status: Acute Plan to address problem: SCD to bilateral lower extremities while in bed, prophylactic anticoagulation History Interval history: Patient seen and examined at bedside Plan for PEG placement tomorrow Hospitalist Physical - Physical exam Narrative exam: VITAL SIGNS: Reviewed. GENERAL: Awake HEAD: No signs of head trauma. EYES: Pupils are equal. Extraocular motions intact. MOUTH: Oropharynx is normal. NECK: No adenopathy, no JVD. CHEST: Chest with diminished breath sounds bilaterally. No wheezes, rales, or rhonchi. CARDIAC: normal S1 and S2, without murmurs, gallops, or rubs. ABDOMEN: Soft, non tender and non distended. No rebound or guarding, and no masses palpated. Bowel Sounds normal. MUSCULOSKELETAL: No edema NEUROLOGIC EXAM: Awake SKIN: No obvious lesions - Constitutional Vitals: Temp Pulse Resp BP Pulse Ox 97.4 F L 83 16 104/72 98 03/19/20 08:06 03/19/20 08:06 03/19/20 08:06 03/19/20 08:06 03/19/20 10:00 Results - Labs CBC & Chem 7: 03/15/20 15:09 03/17/20 13:43 Labs: Laboratory Last Values WBC 5.9 K/mm3 (4.5-11.0) 03/15/20 15:09 RBC 4.12 M/mm3 (3.65-5.03) 03/15/20 15:09 Hgb 13.5 gm/dl (10.1-14.3) 03/15/20 15:09 Hct 38.4 % (30.3-42.9) 03/15/20 15:09 MCV 93 fl (79-97) 03/15/20 15:09 MCH 33 pg (28-32) H 03/15/20 15:09 MCHC 35 % (30-34) H 03/15/20 15:09 RDW 12.8 % (13.2-15.2) L 03/15/20 15:09 Plt Count 214 K/mm3 (140-440) 03/15/20 15:09 Lymph % (Auto) 21.1 % (13.4-35.0) 03/15/20 15:09 Curry % (Auto) 8.2 % (0.0-7.3) H 03/15/20 15:09 Eos % (Auto) 1.7 % (0.0-4.3) 03/15/20 15:09 Baso % (Auto) 0.7 % (0.0-1.8) 03/15/20 15:09 Lymph # (Auto) 1.3 K/mm3 (1.2-5.4) 03/15/20 15:09 Curry # (Auto) 0.5 K/mm3 (0.0-0.8) 03/15/20 15:09 Eos # (Auto) 0.1 K/mm3 (0.0-0.4) 03/15/20 15:09 Baso # (Auto) 0.0 K/mm3 (0.0-0.1) 03/15/20 15:09 Seg Neutrophils % 68.3 % (40.0-70.0) 03/15/20 15:09 Seg Neutrophils # 4.1 K/mm3 (1.8-7.7) 03/15/20 15:09 PT 12.6 Sec. (12.2-14.9) 03/16/20 05:26 INR 0.96 (0.87-1.13) 03/16/20 05:26 APTT 27.6 Sec. (24.2-36.6) 03/16/20 05:26 Sodium 144 mmol/L (137-145) 03/17/20 13:43 Potassium 4.5 mmol/L (3.6-5.0) D 03/17/20 13:43 Chloride 107.7 mmol/L (98-107) H 03/17/20 13:43 Carbon Dioxide 28 mmol/L (22-30) 03/17/20 13:43 Anion Gap 13 mmol/L 03/17/20 13:43 BUN 6 mg/dL (7-17) L 03/17/20 13:43 Creatinine 0.5 mg/dL (0.6-1.2) L 03/17/20 13:43 Estimated GFR > 60 ml/min 03/17/20 13:43 BUN/Creatinine Ratio 12 % 03/17/20 13:43 Glucose 120 mg/dL (65-100) H 03/17/20 13:43 POC Glucose 83 mg/dL (70-105) 03/19/20 06:50 Calcium 9.4 mg/dL (8.4-10.2) 03/17/20 13:43 Phosphorus 3.50 mg/dL (2.5-4.5) D 03/17/20 13:43 Magnesium 1.90 mg/dL (1.7-2.3) 03/17/20 13:43 Total Bilirubin 0.20 mg/dL (0.1-1.2) 03/15/20 15:09 AST 16 units/L (5-40) 03/15/20 15:09 ALT 16 units/L (7-56) 03/15/20 15:09 Alkaline Phosphatase 81 units/L (35-129) 03/15/20 15:09 C-Reactive Protein 0.70 mg/dL (0.00-1.30) 03/17/20 13:43 Total Protein 6.7 g/dL (6.3-8.2) 03/15/20 15:09 Albumin 3.6 g/dL (3.9-5) L 03/15/20 15:09 Albumin/Globulin Ratio 1.2 % 03/15/20 15:09 Prealbumin 0.186 g/L (0.200-0.400) L 03/17/20 13:43 Triglycerides 110 mg/dL (2-149) 03/17/20 13:43 Frederick/IV: Voiding Method External Female Catheter IV Catheter Type [left forearm Peripheral IV ] Active Medications - Current Medications Current Medications: Generic Name Dose Route Start Last Admin Trade Name Freq PRN Reason Stop Dose Admin Acetaminophen 650 mg 03/15/20 17:42 Acetaminophen 325 Mg Tab PO Q4H PRN Pain MILD(1-3)/Fever >100.5/LYONS Lipase/Protease/Amylase 1 each 03/18/20 08:09 Lipase 10,500/Protease 25,000/Amylase 43,750 (Units) Dr Butts FEEDTUBE PRN PRN For Clogged Feeding Tube Aspirin 81 mg 03/16/20 08:00 03/19/20 08:29 Aspirin 81 Mg Tab Chew FEEDTUBE 81 mg QDAY GILSON Administration Hydralazine HCl 5 mg 03/16/20 00:41 Hydralazine 20 Mg/1 Ml Inj IV Q6H PRN Hypertension Dextrose/Sodium Chloride 1,000 mls @ 75 mls/hr 03/15/20 18:00 03/19/20 08:29 D5/0.45ns IV 75 mls/hr DIRECT GILSON Administration Levetiracetam 500 mg/ Dextrose 105 mls @ 420 mls/hr 03/16/20 01:15 03/18/20 22:00 IV 420 mls/hr BID@1000,2200 GILSON Administration Levothyroxine Sodium 100 mcg 03/15/20 22:00 03/19/20 08:29 Levothyroxine 100 Mcg Tab FEEDTUBE 100 mcg BID GILSON Administration Lorazepam 1 mg 03/17/20 13:52 03/17/20 22:54 Lorazepam 1 Mg Tab PO 1 mg Q6HR PRN Administration Anxiety Ondansetron HCl 4 mg 03/15/20 17:42 Ondansetron 4 Mg/2 Ml Inj IV Q8H PRN Nausea And Vomiting Pantoprazole Sodium 40 mg 03/16/20 08:00 03/19/20 08:29 Pantoprazole 40 Mg Inj IV 40 mg BID GILSON Administration Simple Syrup 15 ml 03/18/20 08:09 Simple Syrup 15 Ml FEEDTUBE PRN PRN Hypoglycemia Simple Syrup 30 ml 03/18/20 08:09 Simple Syrup 15 Ml FEEDTUBE PRN PRN Hypoglycemia Sodium Bicarbonate 325 mg 03/18/20 08:09 Sodium Bicarbonate 325 Mg Tab FEEDTUBE PRN PRN For Clogged Feeding Tube Sodium Chloride 10 ml 03/15/20 22:00 03/19/20 08:29 Sodium Chloride 0.9% 10 Ml Flush Syringe IV 10 ml BID GILSON Administration Sodium Chloride 10 ml 03/15/20 17:42 Sodium Chloride 0.9% 10 Ml Flush Syringe IV PRN PRN LINE FLUSH Nutrition/Malnutrition Assess - Dietary Evaluation Nutrition/Malnutrition Findings: Nutrition Notes Start: 03/16/20 13:01 Freq: Status: Active Protocol: Document 03/18/20 08:11 GILBERT (Rec: 03/18/20 08:14 GILBERT [id number]) Nutrition Notes Initial or Follow up Reassessment Current Diagnosis Hypertension Other Pertinent Diagnosis dislodged PEG, seizures, hypothyroid, debility Current Diet TPN Labs/Tests Reviewed Pertinent Medications Reviewed Height 4 ft 10 in Weight 40.823 kg [place] Body Weight (kg) 40.90 BMI 18.8 Weight Status Underweight Subjective/Other Information Spoke with RN this AM and MD wants TF started. Will order. Pt with dobhoff. Percent of energy/protein needs met: 0%/0% Burn Absent Trauma Absent GI Symptoms None Current % PO Negligible #1 Nutrition Diagnosis Inadequate oral intake Diagnosis Progress(for reassessment Continues documentation) Is patient on ventilator? No Is Patient Ambulatory and/or Out of Bed No REE-([place]-confined to bed) 1129.500 Kcal/Kg value to use for calculation 32 Approximate Energy Requirements Using 1306 kcal/Kg Calculation Used for Recommendations Kcal/kg Additional Notes Protein: 41-49g (1-1.2g/kg) Fluid: 1ml/kcal Nutrition Intervention Change Diet Order: TF Nutrition Support: Jevity 1.2 at 45ml/hr Flush 70ml q4h Kcal 1,296 Protein (gm) 60 Fluid (mL) 872 Goal #1 TF start/tolerance Goal #2 Meet at least 75% of protein and energy needs via TF Goal #3 Wt gain/maintenance Anticipated Discharge Needs: TF Follow-Up By: 03/20/20 Additional Comments F/U for TF start/tolerance
[2020-03-20] MEDS: D5W/0.45% NACL 1,000 ML IV SCH (00:53)
[2020-03-20] MEDS ORDERED: SODIUM CHLORIDE 0.9% 1000 ML 1,000 ML IV SCH (08:15)
[2020-03-20] MEDS: levETIRAcetam 500 MG in DEXTROSE 5% IN WATER 100 ML IV SCH ×2 (08:30→22:22)
[2020-03-20] MEDS: ASPIRIN 81 MG TAB CHEW FEEDTUBE SCH (08:36)
[2020-03-20] MEDS: PANTOPRAZOLE 40 MG INJ IV SCH ×2 (08:37→22:22)
[2020-03-20] MEDS ORDERED: ceFAZolin/Water 2 GM/20 ML 2 GM/20 ML SYRINGE IV NR (09:00)
[2020-03-20] MEDS ORDERED: propofoL 200 MG/20 ML VIAL IV ONE ×2 (09:19→09:40)
--- NOTE | 2020-03-20 09:25 | Anesthesia Day of Surgery ---
Anesthesia Day of Surgery - Day of Surgery Patient Examined: Yes Patient H&P Reviewed: Yes Patient is NPO: Yes
--- NOTE | 2020-03-20 09:29 | Anesthesia Consultation ---
Anesthesia Consult and Med Hx Date of service: 03/20/20 - Airway Intubation Access Assessment: Good (TRACH; Unable to assess airway) - Pre-Operative Health Status ASA Pre-Surgery Classification: ASA3 Proposed Anesthetic Plan: MAC - Cardiovascular System Hx Hypertension: Yes - Central Nervous System Hx Neuromuscular Disorder: Yes (Metabolic encephalopathy) Hx Seizures: Yes CVA: Yes (2014, 2018) - Gastrointestinal Hx Gastroesophageal Reflux Disease: No (Dislodged PEG. Severe malnutrition) - Endocrine Hx Thyroid Disease: Yes Hx Hypothyroidism: Yes
[2020-03-20] MEDS ORDERED: WATER FOR IRRIG STERILE 1,000 ML BOTTLE ONE (09:32)
[2020-03-20] MEDS ORDERED: WATER FOR IRRIG STERILE 250 ML BOTTLE IR ONE (09:32)
[2020-03-20] MEDS ORDERED: fentaNYL 100 MCG/2 ML INJ ONE (09:33)
--- NOTE | 2020-03-20 10:01 | Operative Report ---
Operative Report Operative Report: Date of procedure: 03/20/2020 Pre procedure diagnosis: Inability to swallow due to CVA Post procedure diagnosis: same Procedure: Esophagogastroduodenoscopy with percutaneous endoscopic gastrostomy Endoscopist: Slim Og MD (Jenny) Medications: Per anesthesia- see separate records for details./ Ancef 2 gm IV Complications: none Estimated blood loss: None After careful discussion of the nature and purpose of the procedure, details of the technique, risks, benefits and alternatives consent was obtained from patient's family. The patient was placed in the supine position and medicated by anesthesia- see separate records for details. The tip of the olympus video upper scope was passed per orum under direct view through the mouth and into the esophagus, stomach and duodenum. The scope was advanced to the second portion of the duodenum without difficulty. The third portion and second portion of the duodenum were normal. The bulb revealed normal mucosa. The scope was withdrawn back into the stomach and the stomach gently insufflated with air. The antrum revealed normal mucosa. The scope was then retroflexed and partially withdrawn to inspect the proximal stomach. The cardia, fundus and body were normal. Previous PEG tube site noted in the gastric body. The stomach was insufflated and a suitable gastrostomy site selected by transillumination and percutaneous compression demonstrating good opposition of the stomach and abdominal wall. The abdomen was prepped and draped in sterile fashion and 1% lidocaine instilled at the optimal site. A small incision was made and the tissue spread with sterile hemostats. The needle and catheter were inserted percutaneously into the stomach without difficulty under direct view. The needle was withdrawn followed by insertion of the guidewire through the catheter. The guidewire was grasped by the snare and positioned by withdrawal of the scope. A IP [employer] 20 gauge gastrostomy tube was pulled into place from the abdominal side of the wire to a snug fit at around 3 cm at the skin. The external bumper was applied and the site again dressed in sterile fashion. The scope was then withdrawn in the forward view. The EG junction was at 40 cm. The esophagus revealed normal mucosa throughout. . The procedure was well tolerated and the patient was observed in the GI recovery unit. IMPRESSION: S/p Percutaneous Endoscopic gastrostomy. Plan: - resume tube feeds in 6 hours - keep head of bed elevated, aspiration precautions. Slim Og (Jenny), MD [facility]
[2020-03-20] MEDS: LEVOTHYROXINE 100 MCG TAB FEEDTUBE SCH ×2 (10:35→22:22)
--- NOTE | 2020-03-20 16:22 | Progress Note ---
Assessment and Plan Assessment and plan: Assessment and plan: 44 YO Female with Severe Malnutrition, Seizure Disorder, Hypothyroidism, HTN, CVA S/P Trach/Peg placement, Debility presents to ED for evaluation. Patient is at her baseline level of cognition and is unable to provide history. Patient history taken from EMS staff, ED staff, as well as patient family. As per patient family the patient was in her usual state of health with the PEG tube being in position at around 0100 hrs. Patient was found this morning upon awakening from sleep to have dislodged her feeding tube and is unable to receive her medication. EMS was notified and upon arrival the patient was found to have a dislodged feeding tube and was subsequently transported to [facility] for further evaluation and care. The patient was seen and evaluated in the emergency department. All lab and imaging studies reviewed. The patient was found to lyons ve severe malnutrition, metabolic encephalopathy, as well as a dislodged PEG tube. Patient admitted to medical floor due to increased risk of worsening symptoms. Gastroenterology team consulted in the emergency department. Patient is pending PEG tube replacement. No reports of fever, chills, chest pain, palpitations, trauma, recent ill contacts, or known exposure to COVID-19. Prior admission from August 2019 reviewed. All medication listed at time of admission has been reconciled. 03/16: Multiple attempts to place line rebuffed by the patient. Discussed with family patient takes Ativan at home orally. Will give one-time dose IV. Monitor respiration. We will also while awaiting GI order for PICC line and possible TPN or PPN until patient is able to get replacement of the dislodged gastrostomy tube. Plan discussed with the nursing staff and patient 03/17: Continue current diet through the NG tube. Continue seizure precautions and continue seizure medication. 03/18: Continue aggressive pulmonary toliet. Peg replacement planned for friday. 03/19. Plan for PEG placement tomorrow. N.p.o. after midnight 03/20. PEG placed. Ok to resume feeds. Plan for DC tomorrow. Plan --Dislodged gastrostomy tube Current Visit: Yes Status: Acute Plan to address problem: PEG placed. Tube to be resumed. --Severe malnutrition Current Visit: Yes Status: Acute Plan to address problem: Dietary supplementation, increase protein intake. --Vascular dementia Current Visit: Yes Status: Chronic Plan to address problem: Has residual memory impairment. --Seizure disorder Current Visit: Yes Status: Acute Plan to address problem: Seizure precautions, continue Keppra via Dobbhoff tube, neuro check -- Hypothyroidism Current Visit: Yes Status: Acute Plan to address problem: Continue Synthroid therapy via Dobbhoff tube, supportive care. ---DVT prophylaxis Current Visit: Yes Status: Acute Plan to address problem: SCD to bilateral lower extremities while in bed, prophylactic anticoagulation History Interval history: Patient seen and examined at bedside PEG placed today. Can resume feeds Hospitalist Physical - Physical exam Narrative exam: VITAL SIGNS: Reviewed. GENERAL: Awake HEAD: No signs of head trauma. EYES: Pupils are equal. Extraocular motions intact. MOUTH: Oropharynx is normal. NECK: No adenopathy, no JVD. CHEST: Chest with diminished breath sounds bilaterally. No wheezes, rales, or rhonchi. CARDIAC: normal S1 and S2, without murmurs, gallops, or rubs. ABDOMEN: Soft, non tender and non distended. No rebound or guarding, and no masses palpated. Bowel Sounds normal. MUSCULOSKELETAL: No edema NEUROLOGIC EXAM: Awake SKIN: No obvious lesions - Constitutional Vitals: Temp Pulse Resp BP Pulse Ox 98.5 F 76 24 141/96 100 03/20/20 15:12 03/20/20 15:12 03/20/20 15:12 03/20/20 15:12 03/20/20 15:12 Results - Labs CBC & Chem 7: 03/15/20 15:09 03/17/20 13:43 Labs: Laboratory Last Values WBC 5.9 K/mm3 (4.5-11.0) 03/15/20 15:09 RBC 4.12 M/mm3 (3.65-5.03) 03/15/20 15:09 Hgb 13.5 gm/dl (10.1-14.3) 03/15/20 15:09 Hct 38.4 % (30.3-42.9) 03/15/20 15:09 MCV 93 fl (79-97) 03/15/20 15:09 MCH 33 pg (28-32) H 03/15/20 15:09 MCHC 35 % (30-34) H 03/15/20 15:09 RDW 12.8 % (13.2-15.2) L 03/15/20 15:09 Plt Count 214 K/mm3 (140-440) 03/15/20 15:09 Lymph % (Auto) 21.1 % (13.4-35.0) 03/15/20 15:09 [place] % (Auto) 8.2 % (0.0-7.3) H 03/15/20 15:09 Eos % (Auto) 1.7 % (0.0-4.3) 03/15/20 15:09 Baso % (Auto) 0.7 % (0.0-1.8) 03/15/20 15:09 Lymph # (Auto) 1.3 K/mm3 (1.2-5.4) 03/15/20 15:09 [place] # (Auto) 0.5 K/mm3 (0.0-0.8) 03/15/20 15:09 Eos # (Auto) 0.1 K/mm3 (0.0-0.4) 03/15/20 15:09 Baso # (Auto) 0.0 K/mm3 (0.0-0.1) 03/15/20 15:09 Seg Neutrophils % 68.3 % (40.0-70.0) 03/15/20 15:09 Seg Neutrophils # 4.1 K/mm3 (1.8-7.7) 03/15/20 15:09 PT 12.6 Sec. (12.2-14.9) 03/16/20 05:26 INR 0.96 (0.87-1.13) 03/16/20 05:26 APTT 27.6 Sec. (24.2-36.6) 03/16/20 05:26 Sodium 144 mmol/L (137-145) 03/17/20 13:43 Potassium 4.5 mmol/L (3.6-5.0) D 03/17/20 13:43 Chloride 107.7 mmol/L (98-107) H 03/17/20 13:43 Carbon Dioxide 28 mmol/L (22-30) 03/17/20 13:43 Anion Gap 13 mmol/L 03/17/20 13:43 BUN 6 mg/dL (7-17) L 03/17/20 13:43 Creatinine 0.5 mg/dL (0.6-1.2) L 03/17/20 13:43 Estimated GFR > 60 ml/min 03/17/20 13:43 BUN/Creatinine Ratio 12 % 03/17/20 13:43 Glucose 120 mg/dL (65-100) H 03/17/20 13:43 POC Glucose 87 mg/dL (70-105) 03/20/20 11:19 Calcium 9.4 mg/dL (8.4-10.2) 03/17/20 13:43 Phosphorus 3.50 mg/dL (2.5-4.5) D 03/17/20 13:43 Magnesium 1.90 mg/dL (1.7-2.3) 03/17/20 13:43 Total Bilirubin 0.20 mg/dL (0.1-1.2) 03/15/20 15:09 AST 16 units/L (5-40) 03/15/20 15:09 ALT 16 units/L (7-56) 03/15/20 15:09 Alkaline Phosphatase 81 units/L (35-129) 03/15/20 15:09 C-Reactive Protein 0.70 mg/dL (0.00-1.30) 03/17/20 13:43 Total Protein 6.7 g/dL (6.3-8.2) 03/15/20 15:09 Albumin 3.6 g/dL (3.9-5) L 03/15/20 15:09 Albumin/Globulin Ratio 1.2 % 03/15/20 15:09 Prealbumin 0.186 g/L (0.200-0.400) L 03/17/20 13:43 Triglycerides 110 mg/dL (2-149) 03/17/20 13:43 Frederick/IV: Voiding Method Diaper IV Catheter Type [left forearm Peripheral IV ] Active Medications - Current Medications Current Medications: Generic Name Dose Route Start Last Admin Trade Name Freq PRN Reason Stop Dose Admin Acetaminophen 650 mg 03/15/20 17:42 Acetaminophen 325 Mg Tab PO Q4H PRN Pain MILD(1-3)/Fever >100.5/LYONS Lipase/Protease/Amylase 1 each 03/18/20 08:09 Lipase 10,500/Protease 25,000/Amylase 43,750 (Units) Dr Butts FEEDTUBE PRN PRN For Clogged Feeding Tube Aspirin 81 mg 03/16/20 08:00 03/20/20 08:36 Aspirin 81 Mg Tab Chew FEEDTUBE Not Given QDAY GILSON Hydralazine HCl 5 mg 03/16/20 00:41 Hydralazine 20 Mg/1 Ml Inj IV Q6H PRN Hypertension Levetiracetam 500 mg/ Dextrose 105 mls @ 420 mls/hr 03/16/20 01:15 03/20/20 08:30 IV 420 mls/hr BID@1000,2200 GILSON Administration Sodium Chloride 1,000 mls @ 50 mls/hr 03/20/20 08:15 03/20/20 08:55 Nacl 0.9% 1000 Ml IV 50 mls/hr DIRECT GILSON Administration Cefazolin Sodium 2 gm in 20 mls @ 80 mls/hr 03/20/20 09:00 Ancef/Sterile Water 2 Gm/20 Ml IV 03/20/20 20:00 PREOP NR Protocol Levothyroxine Sodium 100 mcg 03/15/20 22:00 03/20/20 10:35 Levothyroxine 100 Mcg Tab FEEDTUBE 100 mcg BID GILSON Administration Lorazepam 1 mg 03/17/20 13:52 03/17/20 22:54 Lorazepam 1 Mg Tab PO 1 mg Q6HR PRN Administration Anxiety Ondansetron HCl 4 mg 03/15/20 17:42 Ondansetron 4 Mg/2 Ml Inj IV Q8H PRN Nausea And Vomiting Pantoprazole Sodium 40 mg 03/16/20 08:00 03/20/20 08:37 Pantoprazole 40 Mg Inj IV 40 mg BID GILSON Administration Simple Syrup 15 ml 03/18/20 08:09 Simple Syrup 15 Ml FEEDTUBE PRN PRN Hypoglycemia Simple Syrup 30 ml 03/18/20 08:09 Simple Syrup 15 Ml FEEDTUBE PRN PRN Hypoglycemia Sodium Bicarbonate 325 mg 03/18/20 08:09 Sodium Bicarbonate 325 Mg Tab FEEDTUBE PRN PRN For Clogged Feeding Tube Sodium Chloride 10 ml 03/15/20 22:00 03/20/20 08:42 Sodium Chloride 0.9% 10 Ml Flush Syringe IV Not Given BID GILSON Sodium Chloride 10 ml 03/15/20 17:42 Sodium Chloride 0.9% 10 Ml Flush Syringe IV PRN PRN LINE FLUSH Nutrition/Malnutrition Assess - Dietary Evaluation Nutrition/Malnutrition Findings: Nutrition Notes Start: 03/16/20 13:01 Freq: Status: Active Protocol: Document 03/20/20 10:14 LM (Rec: 03/20/20 10:14 LM [id number]) Nutrition Notes Initial or Follow up Brief Note Subjective/Other Information Pt NPO for PEG placement. Pt was not in room. Nutrition Intervention Follow-Up By: 03/21/20 Additional Comments F/U for PEG, TF restart
--- NOTE | 2020-03-20 17:25 | Post Anesthesia Evaluation ---
- Post Anesthesia Evaluation Patient Participated: Yes Airway Patent: Yes Stable Respiratory Function: Yes Nausea/Vomiting: No Temp > 96.8F: Yes Pain Manageable: Yes Adequeate Hydration: Yes Anesthesia Complications: No Block Receding Appropriately: Not Applicable Patient on Ventilator: No
[2020-03-21] MEDS: PANTOPRAZOLE 40 MG INJ IV SCH (10:01)
[2020-03-21] MEDS: ASPIRIN 81 MG TAB CHEW FEEDTUBE SCH (10:01)
[2020-03-21] MEDS: LEVOTHYROXINE 100 MCG TAB FEEDTUBE SCH (10:01)
[2020-03-21] MEDS: levETIRAcetam 500 MG in DEXTROSE 5% IN WATER 100 ML IV SCH (10:05)
--- NOTE | 2020-03-21 12:52 | Discharge Summary ---
Providers - Providers Date of Admission: 03/15/20 17:42 Date of discharge: 03/21/20 Attending physician: ROSA COFFMAN 03/15/20 16:02 Consult to Physician [CONS] Urgent Comment: Consulting Provider: TARA KIM Physician Instructions: Reason For Exam: peg tube replacement 03/16/20 11:54 Consult to Dietitian/Nutrition [CONS] Routine Physician Instructions: Reason For Exam: Reason for Consult: Write/Manage TPN/PPN Consult to PICC Line RN [CONS] Urgent Reason For Exam: Nutrition Type Line:: PICC 03/20/20 13:28 Consult to Dietitian/Nutrition [CONS] Routine Physician Instructions: Reason For Exam: Reason for Consult: Write/Manage Tube Feeding Primary care physician: DIRECTOR D[employer]AL SERVICES Hospitalization Condition: Stable Hospital course: 44 YO Female with Severe Malnutrition, Seizure Disorder, Hypothyroidism, HTN, CVA S/P Trach/Peg placement, Debility presents to ED for evaluation. Patient is at her baseline level of cognition and is unable to provide history. Patient history taken from EMS staff, ED staff, as well as patient family. As per patient family the patient was in her usual state of health with the PEG tube being in position at around 0100 hrs. Patient was found this morning upon awakening from sleep to have dislodged her feeding tube and is unable to receive her medication. EMS was notified and upon arrival the patient was found to have a dislodged feeding tube and was subsequently transported to [facility] for further evaluation and care. The patient was seen and evaluated in the [facility] department. All lab and imaging studies reviewed. The patient was found to have severe malnutrition, metabolic encephalopathy, as well as a dislodged PEG tube. Patient admitted to medical floor due to increased risk of worsening symptoms. Gastroenterology team consulted in the emergency department. Patient is pending PEG tube replacement. No reports of fever, chills, chest pain, palpitations, trauma, recent ill contacts, or known exposure to COVID-19. Prior admission from August 2019 reviewed. All medication listed at time of admission has been reconciled. 03/16: Multiple attempts to place line rebuffed by the patient. Discussed with family patient takes Ativan at home orally. Will give one-time dose IV. Monitor respiration. We will also while awaiting GI order for PICC line and possible TPN or PPN until patient is able to get replacement of the dislodged gastrostomy tube. Plan discussed with the nursing staff and patient 03/17: Continue current diet through the NG tube. Continue seizure precautions and continue seizure medication. 03/18: Continue aggressive pulmonary toliet. Peg replacement planned for friday. 03/19. Plan for PEG placement tomorrow. N.p.o. after midnight 03/20. PEG placed. Ok to resume feeds. Plan for DC tomorrow. 03/21. On tube feeds. DC today. Time spent for discharge: 34 minutes - Discharge Diagnoses (1) Dislodged gastrostomy tube Status: Acute Core Measure Documentation - Palliative Care Palliative Care/ Comfort Measures: Hospice Care - Core Measures Any of the following diagnoses?: none Exam - Physical Exam Narrative exam: VITAL SIGNS: Reviewed. GENERAL: Awake HEAD: No signs of head trauma. EYES: Pupils are equal. Extraocular motions intact. MOUTH: Oropharynx is normal. NECK: No adenopathy, no JVD. CHEST: Chest with diminished breath sounds bilaterally. No wheezes, rales, or rhonchi. CARDIAC: normal S1 and S2, without murmurs, gallops, or rubs. ABDOMEN: Soft, non tender and non distended. No rebound or guarding, and no masses palpated. Bowel Sounds normal. MUSCULOSKELETAL: No edema NEUROLOGIC EXAM: Awake SKIN: No obvious lesions - Constitutional Vitals: Temp Pulse Resp BP Pulse Ox 97.5 F L 87 18 92/61 95 03/21/20 11:35 03/21/20 11:35 03/21/20 11:35 03/21/20 11:35 03/21/20 11:35 Plan Activity: no restrictions Diet: other (Tube feeds) Additional Instructions: Continue tube feeds. Follow up with primary medical doctor in a week Follow up with: TJ STEPHENS MD [Primary Care Provider] - 7 Days
[2020-03-21 16:09] VITALS: BP 104/69
--- NOTE | 2020-03-21 17:24 | Gastroenterology Progress Note ---
Assessment and Plan She has a hx of CVA with chronic trach and PEG. # Dislodged PEG tube - unable to replace PEG by bedside. - s/p EGD with PEG placement at a new site on 03/20/2020. - outer bumper loosened by bedside today. - cont with tube feeds per nutrition. use aspiration precautions. - will sign off. Subjective Date of service: 03/21/20 Principal diagnosis: dysphagia, disloged PEG Interval history: s/p PEG placement on 03/20/2020. Tolerating tube feeds. Objective - Constitutional Vitals: Temp Pulse Resp BP Pulse Ox 98.1 F 87 17 104/69 99 03/21/20 16:08 03/21/20 16:08 03/21/20 16:08 03/21/20 16:08 03/21/20 16:08 General appearance: no acute distress - Neck Neck: other (Trach in place) - Respiratory Respiratory effort: normal - Cardiovascular Rhythm: regular Heart Sounds: Present: S1 & S2 - Gastrointestinal General gastrointestinal: Present: soft, non-tender, non-distended, other (PEG outer bumper loosened slightly) - Integumentary Integumentary: Present: clear, warm - Labs CBC & Chem 7: 03/15/20 15:09 03/17/20 13:43 Labs: Laboratory Results - last 24 hr 03/20/20 03/21/20 03/21/20 17:55 01:23 05:39 POC Glucose 89 93 118 H 03/21/20 11:33 POC Glucose 148 H
[2020-03-21] MEDS ORDERED: LANSOPRAZOLE 30 MG SOLUTAB FEEDTUBE SCH (22:00)
[2020-03-21] MEDS ORDERED: levETIRAcetam 500 MG/5 ML ORAL LIQD FEEDTUBE SCH (22:00)
== END 2020-03-21 17:21 | disposition home or self-care (01) ==
LOC: ED 11:02 → INTOOBSV 17:42 → 3A 17:42 → 3B 18:46
PROVIDERS: ADMIT Internal Medicine; ATTEND Internal Medicine
DX: T85.528A Displacement of other gastrointestinal prosthetic devices, implants and grafts, initial encounter (principal); G93.41 Metabolic encephalopathy; I10 Essential (primary) hypertension; E43 Unspecified severe protein-calorie malnutrition; D53.9 Nutritional anemia, unspecified; E03.9 Hypothyroidism, unspecified; R56.9 Unspecified convulsions; R53.81 Other malaise; F01.50 Vascular dementia, unspecified severity, without behavioral disturbance, psychotic disturbance, mood disturbance, and anxiety; Z68.20 Body mass index [BMI] 20.0-20.9, adult; Z86.73 Personal history of transient ischemic attack (TIA), and cerebral infarction without residual deficits; Z79.82 Long term (current) use of aspirin; Z79.899 Other long term (current) drug therapy
CPT/HCPCS: 36415; 43246; 74018; 80048; 80053; 82962; 83735; 84100; 84134; 84478; 85025; 85610; 85730; 86140; 94760; 96361; 96374; 96375; 96376; 99284; C9113; G0378; J0690; J1953; J2060; J2704; J3010; J7030